=== PATIENT | male | born 2000 | race Caucasian/White ===

== ENCOUNTER 2025-07-20 14:59 | Emergency (ER) | payer MEDICAID ==
[~2025-07-20] VITALS: Ht 177.8 cm; Wt 100.0 kg
[2025-07-20 15:47] VITALS: O2SAT 99
[2025-07-20] MEDS: KETOROLAC 30MG/ML VIAL IM ONE (17:37)
[2025-07-20] MEDS: LIDOCAINE 5% PATCH TOP SCH (17:37)
[2025-07-20] MEDS: DEXAMETHASONE 10 MG/ML VIAL IM ONE (17:37)
[2025-07-20] MEDS ORDERED: LIDO-53 TP (19:17)
[2025-07-20] MEDS ORDERED: METH4TAB95 MT (19:17)
[2025-07-20] MEDS: ACETAMINOPHEN 500MG TABLET PO ONE (19:48)
[2025-07-20 20:35] VITALS: BP 122/77; PULSE 85; RESP 17; TEMP 36.5; O2SAT 99
== END 2025-07-20 20:30 | disposition home or self-care (01) ==
LOC: ER 14:59
DX: M54.40 Lumbago with sciatica, unspecified side (principal)
CPT/HCPCS: 99285; 72131; 96372; J1885; J1100